=== PATIENT | male | born 1975 | race Two or more races ===

== ENCOUNTER 2021-09-30 14:02 | Emergency (ER) | payer MEDICAID ==
[2021-09-30 15:18] LABS: ANION GAP 14.9 mmol/L (5-15); CHLORIDE,CL 98 mmol/L (98-107); SODIUM,NA 136 mmol/L (136-145)
[2021-09-30 15:20] LABS: BARBITURATE SCREEN,URINE NEGATIVE (NEGATIVE); BENZODIAZEPINES SCREEN,URINE NEGATIVE (NEGATIVE); BUPRENORPHINE SCREEN,URINE NEGATIVE (NEGATIVE); METHAMPHETAMINE SCREEN, URINE NEGATIVE (NEGATIVE); THC SCREEN,URINE 50 NG/ML NEGATIVE (NEGATIVE)
== END 2021-09-30 15:35 | disposition home or self-care (01) ==
LOC: VM.ED 14:02
DX: R00.2 Palpitations (principal)
CPT/HCPCS: 36415; 80053; 80305-QW; 81003; 84443; 84484; 85025; 93005; 93010; 99284; 99285-25

== ENCOUNTER 2021-10-26 08:38 | Inpatient (IN) | payer MEDICAID ==
[2021-10-26] MEDS ORDERED: Sodium Chloride 0.9% 10 ML Syringe FLUSH PRN (08:50)
[2021-10-26] MEDS ORDERED: Ondansetron 4 MG/2 ML SDV IVPUSH ONE (08:51)
[2021-10-26] MEDS ORDERED: Sodium Chloride 0.9% 1,000 ML IV SCH (09:00)
[2021-10-26 09:50] LABS: CORONAVIRUS COVID-19 NAA NEGATIVE (NEGATIVE)
[2021-10-26 09:51] LABS: RESPIRATORY SYNCYTIAL VIR NAA NEGATIVE (NEGATIVE)
[2021-10-26 09:59] LABS: CHLORIDE,CL 91 mmol/L (98-107); SODIUM,NA 130 mmol/L (136-145)
[2021-10-26 10:29] LABS: PTT,PARTIAL THROMBOPLSTIN TIME 23.7 SEC (20.5-30.9)
[2021-10-26 11:24] LABS: BARBITURATE SCREEN,URINE NEGATIVE (NEGATIVE); BENZODIAZEPINES SCREEN,URINE NEGATIVE (NEGATIVE); METHAMPHETAMINE SCREEN, URINE NEGATIVE (NEGATIVE); THC SCREEN,URINE 50 NG/ML NEGATIVE (NEGATIVE)
[2021-10-26 11:25] LABS: BUPRENORPHINE SCREEN,URINE NEGATIVE (NEGATIVE)
[2021-10-26] MEDS ORDERED: LORazepam 2 MG/ML SDV IV PRN (11:46)
[2021-10-26] MEDS ORDERED: Haloperidol Lactate 5 MG/ML SDV IV PRN (11:46)
[2021-10-26] MEDS ORDERED: Acetaminophen 325 MG Tab PO PRN (11:51)
[2021-10-26] MEDS ORDERED: Thiamine 100 MG Tab PO SCH (12:00)
[2021-10-26] MEDS ORDERED: Magnesium Sulfate/Water 2 GM in Premix Bag 1 BAG IV ONE (12:33)
[2021-10-26] MEDS: Naltrexone 50 MG Tab PO SCH (13:50)
[2021-10-26] MEDS: cloNIDine 0.1 MG Tab PO SCH ×2 (13:50→19:51)
[2021-10-26] MEDS: Folic Acid 1 MG Tab PO SCH (13:50)
[2021-10-26] MEDS: Cholecalciferol (Vitamin D3) 5,000 UNIT Tab PO SCH (13:50)
[2021-10-26] MEDS: Lactulose Soln 10 GM/15 ML 15 ML UD Cup PO SCH ×2 (13:50→19:51)
[2021-10-26] MEDS: Multivitamins with Iron/Calcium/Folic Acid/Minerals Tab PO SCH (13:50)
[2021-10-26] MEDS: Sodium Chloride 0.9% 1,000 ML IV SCH (13:53)
[2021-10-26] MEDS: Nicotine 21 MG/24 Hr Patch TRDERM SCH (13:59)
[2021-10-26] MEDS: Pantoprazole 40 MG Vial IV SCH (14:01)
[2021-10-26] MEDS: Thiamine 500 MG in Sodium Chloride 0.9% 100 ML IV SCH ×2 (14:08→21:25)
[2021-10-26] MEDS: Potassium Chloride Riders 20 MEQ in Premix Bag 1 BAG IV SCH ×2 (15:00→16:07)
[2021-10-26] MEDS ORDERED: diphenhydrAMINE 50 MG/ML SDV IVPUSH STA (23:30)
[2021-10-27] MEDS: Ondansetron 4 MG/2 ML SDV IVPUSH PRN ×2 (00:47→05:33)
[2021-10-27] MEDS: LORazepam 2 MG/ML SDV IV PRN ×4 (00:47→09:44)
[2021-10-27] MEDS: Sodium Chloride 0.9% 1,000 ML IV SCH (00:49)
[2021-10-27] MEDS ORDERED: Haloperidol Lactate 5 MG/ML SDV IV PRN (07:33)
[2021-10-27 07:51] LABS: CHLORIDE,CL 102 mmol/L (98-107); SODIUM,NA 136 mmol/L (136-145)
[2021-10-27] MEDS ORDERED: OLANZapine 10 MG Vial IM ONE (07:54)
[2021-10-27 07:58] LABS: ANION GAP 11.9 mmol/L (5-15)
[2021-10-27] MEDS: Multivitamins with Iron/Calcium/Folic Acid/Minerals Tab PO SCH (08:02)
[2021-10-27] MEDS: Pantoprazole 40 MG Vial IV SCH (08:02)
[2021-10-27] MEDS: Nicotine 21 MG/24 Hr Patch TRDERM SCH (08:03)
[2021-10-27] MEDS: Naltrexone 50 MG Tab PO SCH (08:03)
[2021-10-27] MEDS: Folic Acid 1 MG Tab PO SCH (08:03)
[2021-10-27] MEDS: Cholecalciferol (Vitamin D3) 5,000 UNIT Tab PO SCH (08:03)
[2021-10-27] MEDS: Thiamine 500 MG in Sodium Chloride 0.9% 100 ML IV SCH ×2 (08:04→13:59)
[2021-10-27] MEDS: cloNIDine 0.1 MG Tab PO SCH ×2 (09:13→13:58)
[2021-10-27] MEDS ORDERED: Magnesium Chloride 64 MG Tab.ER PO SCH (12:00)
[2021-10-27] MEDS ORDERED: Potassium Bicarbonate 25 MEQ Tab.EFF PO SCH (12:00)
[2021-10-27] MEDS ORDERED: PHENobarbitaL sodium 260 MG in Sodium Chloride 0.9% 100 ML IV ONE (12:00)
== END 2021-10-27 14:34 | disposition short-term general hospital (02) | DRG 897 ==
LOC: VM.ED 08:38 → VM.MS 11:20
PROVIDERS: ADMIT Nurse Practitioner Family; ATTEND Nurse Practitioner Family
DX: F10.231 Alcohol dependence with withdrawal delirium (principal); E72.20 Disorder of urea cycle metabolism, unspecified; R56.9 Unspecified convulsions; E86.0 Dehydration; E78.5 Hyperlipidemia, unspecified; Z20.822 Contact with and (suspected) exposure to COVID-19; I15.2 Hypertension secondary to endocrine disorders; E11.9 Type 2 diabetes mellitus without complications; F17.200 Nicotine dependence, unspecified, uncomplicated; Y90.0 Blood alcohol level of less than 20 mg/100 ml; K29.20 Alcoholic gastritis without bleeding; Z79.899 Other long term (current) drug therapy
CPT/HCPCS: 0241U; 36415; 70450; 80053; 80305-QW; 80307; 81001; 82140; 82728; 82977; 83540; 83550; 83615; 83735; 84100; 84443; 84484; 85025; 85610; 85730; 86592; 87389; 96374; 99284; 99285-25; A9270-GY; C9113; J1200; J1630; J2060; J2405; J2560; J3411; J3475; J3480; J3490; J7030

== ENCOUNTER 2022-03-29 21:01 | Inpatient (IN) | payer MEDICAID ==
[2022-03-29] MEDS ORDERED: Sodium Chloride 0.9% 1,000 ML IV ONE (21:38)
[2022-03-29] MEDS ORDERED: Sodium Chloride 0.9% 10 ML Syringe FLUSH PRN (21:38)
[2022-03-29] MEDS ORDERED: chlordiazePOXIDE 25 MG Cap PO ONE (21:39)
[2022-03-29] MEDS ORDERED: Metoclopramide 10 MG/2 ML SDV IVPUSH ONE (21:47)
[2022-03-29 22:26] LABS: ANION GAP 23.4 mmol/L (5-15)
[2022-03-29] MEDS ORDERED: Magnesium Hydroxide 400 MG/5 ML Susp 30 ML Cup PO PRN (22:39)
[2022-03-29] MEDS: Nicotine 7 MG/24 Hr Patch TRDERM SCH (23:18)
[2022-03-29] MEDS ORDERED: Ondansetron 4 MG/2 ML SDV IVPUSH PRN (23:26)
[2022-03-29] MEDS: Dextrose 5%-0.9% NaCl 1,000 ML IV SCH (23:37)
[2022-03-29] MEDS: chlordiazePOXIDE 25 MG Cap PO SCH (23:39)
[2022-03-29] MEDS: Thiamine 200 MG/2 ML MDV IV SCH (23:51)
[2022-03-30] MEDS ORDERED: LORazepam 2 MG/ML SDV IVPUSH ONE (00:48)
[2022-03-30] MEDS ORDERED: Flumazenil 0.1 MG/ML 5 ML MDV IVPUSH PRN ×2 (00:48→08:51)
[2022-03-30] MEDS ORDERED: Metoclopramide 10 MG/2 ML SDV IVPUSH ONE (00:49)
[2022-03-30 04:05] LABS: ANION GAP 18.2 mmol/L (5-15)
[2022-03-30] MEDS ORDERED: Promethazine 12.5 MG in Sodium Chloride 0.9% 100 ML IV ONE (04:35)
[2022-03-30] MEDS: chlordiazePOXIDE 25 MG Cap PO SCH ×2 (04:58→11:06)
[2022-03-30] MEDS: Dextrose 5%-0.9% NaCl 1,000 ML IV SCH (05:18)
[2022-03-30] MEDS ORDERED: Ondansetron 4 MG/2 ML SDV IVPUSH PRN (08:31)
[2022-03-30] MEDS ORDERED: LORazepam 0.5 MG Tab PO PRN (08:50)
[2022-03-30] MEDS ORDERED: LORazepam 2 MG/ML SDV IVPUSH PRN (08:51)
[2022-03-30] MEDS ORDERED: Gabapentin 400 MG Cap PO STA (08:58)
[2022-03-30] MEDS ORDERED: Gabapentin 300 MG Cap PO SCH ×2 (09:00→13:00)
[2022-03-30] MEDS ORDERED: Rosuvastatin 20 MG Tab PO SCH (09:00)
[2022-03-30] MEDS ORDERED: Haloperidol Lactate 5 MG/ML SDV IV ONE (09:15)
[2022-03-30] MEDS: Thiamine 200 MG/2 ML MDV IV SCH (09:19)
[2022-03-30] MEDS: Nicotine 7 MG/24 Hr Patch TRDERM SCH (09:25)
[2022-03-30] MEDS: Pantoprazole 40 MG Vial IVPUSH SCH ×2 (09:25→20:06)
[2022-03-30 10:14] LABS: ANION GAP 15.2 mmol/L (5-15)
[2022-03-30] MEDS: NS with KCl 40mEq 1,000 ML IV SCH ×2 (10:14→21:58)
[2022-03-30] MEDS ORDERED: Magnesium Sulfate/Water 2 GM in Premix Bag 1 BAG IV ONE (10:45)
[2022-03-30] MEDS ORDERED: Prochlorperazine 5 MG Tab PO PRN (12:41)
[2022-03-30] MEDS ORDERED: Sodium Chloride 0.9% 1,000 ML IV STA (12:55)
[2022-03-30 13:21] LABS: ANION GAP 17.4 mmol/L (5-15)
[2022-03-30] MEDS: Folic Acid 1 MG Tab PO SCH (13:47)
[2022-03-30] MEDS: Baclofen 10 MG Tab PO SCH ×2 (13:47→20:03)
[2022-03-30] MEDS: Multivitamins with Iron/Calcium/Folic Acid/Minerals Tab PO SCH (13:47)
[2022-03-30] MEDS: PHENobarbital 64.8 MG Tab PO SCH ×2 (13:47→20:03)
[2022-03-30] MEDS: Nicotine 21 MG/24 Hr Patch TRDERM SCH (13:51)
[2022-03-30] MEDS: cloNIDine 0.1 MG Tab PO SCH ×2 (13:52→20:03)
[2022-03-30] MEDS ORDERED: Iopamidol 612 MG/ML 100 ML Bottle IVPUSH ONE (13:56)
[2022-03-30 16:46] LABS: BUPRENORPHINE,URINE NEGATIVE (NEGATIVE); MARIJUANA,URINE POSITIVE (NEGATIVE); METHYLENEDIOXYMETHAMP,UR NEGATIVE (NEGATIVE); PHENCYCLIDINE,URINE NEGATIVE (NEGATIVE)
[2022-03-30] MEDS ORDERED: Sodium Chloride 0.9% 1,000 ML IV ONE (17:19)
[2022-03-30] MEDS: Naltrexone 50 MG Tab PO SCH (20:03)
[2022-03-31] MEDS: cloNIDine 0.1 MG Tab PO SCH ×3 (05:36→20:05)
[2022-03-31] MEDS: Acetaminophen 325 MG Tab PO PRN (05:39)
[2022-03-31] MEDS: NS with KCl 40mEq 1,000 ML IV SCH (05:43)
[2022-03-31 07:24] LABS: ANION GAP 13.3 mmol/L (5-15); CHLORIDE,CL 99 mmol/L (98-107); ESTIMATED GFR 121 mL/min (>=60); SODIUM,NA 132 mmol/L (136-145)
[2022-03-31] MEDS ORDERED: Sodium Chloride 0.9% 1,000 ML IV ONE (07:54)
[2022-03-31] MEDS: Pantoprazole 40 MG Vial IVPUSH SCH (08:51)
[2022-03-31] MEDS: Baclofen 10 MG Tab PO SCH ×3 (08:55→20:06)
[2022-03-31] MEDS: Multivitamins with Iron/Calcium/Folic Acid/Minerals Tab PO SCH (08:55)
[2022-03-31] MEDS: Folic Acid 1 MG Tab PO SCH (08:55)
[2022-03-31] MEDS: Thiamine 100 MG Tab PO SCH (08:55)
[2022-03-31] MEDS: PHENobarbital 64.8 MG Tab PO SCH ×3 (08:56→20:05)
[2022-03-31] MEDS: Dextrose 5%-0.45% NaCl 1,000 ML IV SCH ×2 (10:01→18:06)
[2022-03-31] MEDS: Nicotine 21 MG/24 Hr Patch TRDERM SCH (15:49)
[2022-03-31] MEDS: Naltrexone 50 MG Tab PO SCH (20:05)
[2022-03-31] MEDS: Pantoprazole 40 MG Tab.CR PO SCH (20:06)
[2022-04-01] MEDS: Acetaminophen 325 MG Tab PO PRN ×2 (00:05→20:17)
[2022-04-01] MEDS: Dextrose 5%-0.45% NaCl 1,000 ML IV SCH ×3 (01:33→20:04)
[2022-04-01] MEDS ORDERED: Ketorolac 30 MG/ML SDV IVPUSH ONE (03:30)
[2022-04-01] MEDS ORDERED: Sodium Chloride 0.9% 1,000 ML IV ONE (03:33)
[2022-04-01] MEDS: cloNIDine 0.1 MG Tab PO SCH ×3 (05:02→20:08)
[2022-04-01 07:36] LABS: ANION GAP 11.1 mmol/L (5-15)
[2022-04-01] MEDS ORDERED: Potassium Chloride 20 MEQ Tab.ER PO ONE (08:23)
[2022-04-01] MEDS: Multivitamins with Iron/Calcium/Folic Acid/Minerals Tab PO SCH (09:18)
[2022-04-01] MEDS: Pantoprazole 40 MG Tab.CR PO SCH ×2 (09:18→20:06)
[2022-04-01] MEDS: PHENobarbital 64.8 MG Tab PO SCH ×3 (09:18→20:06)
[2022-04-01] MEDS: Folic Acid 1 MG Tab PO SCH (09:19)
[2022-04-01] MEDS: Baclofen 10 MG Tab PO SCH ×3 (09:19→20:06)
[2022-04-01] MEDS: Thiamine 100 MG Tab PO SCH (09:19)
[2022-04-01] MEDS: Nicotine 21 MG/24 Hr Patch TRDERM SCH (13:03)
[2022-04-01] MEDS: Naltrexone 50 MG Tab PO SCH (20:06)
[2022-04-02] MEDS: cloNIDine 0.1 MG Tab PO SCH ×2 (04:50→12:29)
[2022-04-02] MEDS: Dextrose 5%-0.45% NaCl 1,000 ML IV SCH (04:51)
[2022-04-02 07:17] LABS: ANION GAP 12.5 mmol/L (5-15)
[2022-04-02] MEDS: Thiamine 100 MG Tab PO SCH (09:19)
[2022-04-02] MEDS: PHENobarbital 64.8 MG Tab PO SCH ×2 (09:19→12:29)
[2022-04-02] MEDS: Multivitamins with Iron/Calcium/Folic Acid/Minerals Tab PO SCH (09:19)
[2022-04-02] MEDS: Baclofen 10 MG Tab PO SCH ×2 (09:19→12:29)
[2022-04-02] MEDS: Pantoprazole 40 MG Tab.CR PO SCH (09:19)
[2022-04-02] MEDS: Folic Acid 1 MG Tab PO SCH (09:19)
[2022-04-02] MEDS: Acetaminophen 325 MG Tab PO PRN ×2 (09:20→14:19)
[2022-04-02 12:25] VITALS: BP 113/80; PULSE 77
[2022-04-02] MEDS: Nicotine 21 MG/24 Hr Patch TRDERM SCH (12:27)
== END 2022-04-02 14:55 | disposition home or self-care (01) | DRG 896 ==
LOC: VM.ED 21:01 → VM.MS 22:39
PROVIDERS: ADMIT Physician Assistant; ATTEND Nurse Practitioner Family
DX: F10.239 Alcohol dependence with withdrawal, unspecified (principal); K85.90 Acute pancreatitis without necrosis or infection, unspecified; M62.82 Rhabdomyolysis; F10.129 Alcohol abuse with intoxication, unspecified; E87.6 Hypokalemia; E83.42 Hypomagnesemia; F17.210 Nicotine dependence, cigarettes, uncomplicated; K70.10 Alcoholic hepatitis without ascites; E11.9 Type 2 diabetes mellitus without complications; I10 Essential (primary) hypertension; R06.6 Hiccough; F41.9 Anxiety disorder, unspecified; F32.A Depression, unspecified; E78.5 Hyperlipidemia, unspecified; E78.00 Pure hypercholesterolemia, unspecified; E55.9 Vitamin D deficiency, unspecified; Z79.899 Other long term (current) drug therapy; Z20.822 Contact with and (suspected) exposure to COVID-19
CPT/HCPCS: 36415; 71045; 74170; 80048; 80053; 80305-QW; 80307; 81003; 82140; 82550; 82728; 83605; 83690; 83735; 85025; 85610; 85730; 93005; 96361; 96374; 99285-25; A9270-GY; C9113; J1630; J1885; J2060; J2405; J2550; J2765; J3411; J3475; J3480; J3490; J7030; J7042; Q9967; U0002

== ENCOUNTER 2022-04-22 01:40 | Emergency (ER) | payer MEDICAID ==
[2022-05-14 15:30] LABS: ANION GAP 14.4 mmol/L (5-15); CHLORIDE,CL 103 mmol/L (98-107); ESTIMATED GFR 111 mL/min (>=60); SODIUM,NA 142 mmol/L (136-145)
== END 2022-04-22 03:10 ==
LOC: VM.ED 01:40
DX: Z02.89 Encounter for other administrative examinations (principal); F10.10 Alcohol abuse, uncomplicated
CPT/HCPCS: 36415; 80053; 80307; 85027; 99283

== ENCOUNTER 2022-06-20 11:12 | Inpatient (IN) | payer MEDICAID ==
[2022-06-20] MEDS ORDERED: Sodium Chloride 0.9% 10 ML Syringe FLUSH PRN (11:29)
[2022-06-20] MEDS ORDERED: Ondansetron 4 MG/2 ML SDV IVPUSH ONE (11:29)
[2022-06-20] MEDS ORDERED: Sodium Chloride 0.9% 1,000 ML IV SCH (11:30)
[2022-06-20 11:53] LABS: CHLORIDE,CL 103 mmol/L (98-107); SODIUM,NA 142 mmol/L (136-145)
[2022-06-20 11:54] LABS: ANION GAP 22.5 mmol/L (5-15); ESTIMATED GFR 76 mL/min (>=60)
[2022-06-20 11:56] LABS: PTT,PARTIAL THROMBOPLSTIN TIME 24.1 SEC (20.5-30.9)
[2022-06-20 12:18] LABS: CORONAVIRUS COVID-19 NAA NEGATIVE (NEGATIVE); RESPIRATORY SYNCYTIAL VIR NAA NEGATIVE (NEGATIVE)
[2022-06-20] MEDS ORDERED: Iopamidol 612 MG/ML 100 ML Bottle IVPUSH ONE (12:19)
[2022-06-20] MEDS ORDERED: Prochlorperazine 10 MG/2 ML SDV IV ONE (13:09)
[2022-06-20] MEDS ORDERED: diphenhydrAMINE 50 MG/ML SDV IVPUSH ONE (13:10)
[2022-06-20] MEDS ORDERED: Haloperidol Lactate 5 MG/ML SDV IV PRN (14:35)
[2022-06-20] MEDS ORDERED: Magnesium Sulfate/Water 2 GM in Premix Bag 1 BAG IV ONE (14:39)
[2022-06-20] MEDS ORDERED: PHENobarbitaL sodium 260 MG in Sodium Chloride 0.9% 100 ML IV ONE (14:39)
[2022-06-20] MEDS ORDERED: Ondansetron 4 MG/2 ML SDV IVPUSH PRN (14:40)
[2022-06-20] MEDS ORDERED: Sodium Chloride 0.9% 1,000 ML IV ONE (14:42)
[2022-06-20] MEDS: Pantoprazole 40 MG Vial IVPUSH SCH (15:20)
[2022-06-20] MEDS: Thiamine 200 MG/2 ML MDV IVPUSH SCH (15:34)
[2022-06-20] MEDS: Folic Acid 50 MG/10 ML Bulk Vial IV SCH (15:57)
[2022-06-20 16:09] LABS: BUPRENORPHINE,URINE NEGATIVE (NEGATIVE); MARIJUANA,URINE NEGATIVE (NEGATIVE); METHYLENEDIOXYMETHAMP,UR NEGATIVE (NEGATIVE); PHENCYCLIDINE,URINE NEGATIVE (NEGATIVE)
[2022-06-20] MEDS: Sodium Chloride 0.9% 1,000 ML IV SCH (17:11)
[2022-06-20] MEDS: Naltrexone 50 MG Tab PO SCH (20:00)
[2022-06-20] MEDS: cloNIDine 0.1 MG Tab PO SCH (20:00)
[2022-06-21] MEDS: Sodium Chloride 0.9% 1,000 ML IV SCH ×3 (01:16→22:32)
[2022-06-21] MEDS: Pantoprazole 40 MG Vial IVPUSH SCH ×3 (01:16→14:10)
[2022-06-21 08:07] LABS: ANION GAP 14.4 mmol/L (5-15)
[2022-06-21] MEDS: Citalopram 20 MG Tab PO SCH (09:02)
[2022-06-21] MEDS: Multivitamin Tab PO SCH (09:03)
[2022-06-21] MEDS: Thiamine 200 MG/2 ML MDV IVPUSH SCH (09:03)
[2022-06-21] MEDS: cloNIDine 0.1 MG Tab PO SCH ×3 (09:03→20:05)
[2022-06-21] MEDS: amLODIPine 5 MG Tab PO SCH (10:19)
[2022-06-21] MEDS: Folic Acid 50 MG/10 ML Bulk Vial IV SCH (10:20)
[2022-06-21] MEDS: PHENobarbital Sodium 65 MG/ML SDV IVPUSH SCH (10:22)
[2022-06-21] MEDS ORDERED: Acetaminophen 325 MG Tab PO PRN (14:21)
[2022-06-21] MEDS: Naltrexone 50 MG Tab PO SCH (20:05)
[2022-06-22] MEDS: Pantoprazole 40 MG Vial IVPUSH SCH (02:12)
[2022-06-22] MEDS: Sodium Chloride 0.9% 1,000 ML IV SCH (06:26)
[2022-06-22 07:06] LABS: ANION GAP 12.2 mmol/L (5-15)
[2022-06-22] MEDS ORDERED: Potassium Chloride 20 MEQ Tab.ER PO ONE (07:41)
[2022-06-22] MEDS: Citalopram 20 MG Tab PO SCH (08:40)
[2022-06-22] MEDS: amLODIPine 5 MG Tab PO SCH (08:40)
[2022-06-22] MEDS: cloNIDine 0.1 MG Tab PO SCH (08:40)
[2022-06-22] MEDS: Multivitamin Tab PO SCH (08:40)
[2022-06-22] MEDS: Folic Acid 50 MG/10 ML Bulk Vial IV SCH (08:41)
[2022-06-22] MEDS: Thiamine 200 MG/2 ML MDV IVPUSH SCH (08:43)
[2022-06-22] MEDS: PHENobarbital Sodium 65 MG/ML SDV IVPUSH SCH (08:45)
== END 2022-06-22 10:50 | disposition home or self-care (01) | DRG 897 ==
LOC: VM.ED 11:12 → VM.MS 13:43
PROVIDERS: ADMIT Nurse Practitioner Family; ATTEND Nurse Practitioner Family
DX: F10.229 Alcohol dependence with intoxication, unspecified (principal); E72.20 Disorder of urea cycle metabolism, unspecified; K29.20 Alcoholic gastritis without bleeding; I10 Essential (primary) hypertension; E78.2 Mixed hyperlipidemia; F32.4 Major depressive disorder, single episode, in partial remission; F41.1 Generalized anxiety disorder; E55.9 Vitamin D deficiency, unspecified; E53.8 Deficiency of other specified B group vitamins; E83.119 Hemochromatosis, unspecified; Z20.822 Contact with and (suspected) exposure to COVID-19
CPT/HCPCS: 0241U; 36415; 71046; 74177; 80053; 80305-QW; 80307; 81001; 82140; 82150; 82977; 83690; 83735; 84100; 85025; 85610; 85730; 86140; 94760; 96361; 96374; 96375; 99284; 99285-25; A9270-GY; C9113; J0780; J1200; J1630; J2405; J2560; J3360; J3411; J3475; J7030; Q9967

== ENCOUNTER 2022-09-07 14:26 | Emergency (ER) | payer MEDICAID ==
[2022-09-07] MEDS ORDERED: LORazepam 2 MG/ML SDV IVPUSH PRN ×2 (15:04→16:32)
[2022-09-07 15:17] LABS: ANION GAP 18.7 mmol/L (5-15); CHLORIDE,CL 100 mmol/L (98-107); ESTIMATED GFR 76 mL/min (>=60); SODIUM,NA 139 mmol/L (136-145)
[2022-09-07 15:36] LABS: BARBITURATE SCREEN,URINE NEGATIVE (NEGATIVE); BENZODIAZEPINES SCREEN,URINE POSITIVE (NEGATIVE); BUPRENORPHINE SCREEN,URINE NEGATIVE (NEGATIVE); METHAMPHETAMINE SCREEN, URINE NEGATIVE (NEGATIVE); THC SCREEN,URINE 50 NG/ML POSITIVE (NEGATIVE)
[2022-09-07] MEDS ORDERED: cloNIDine 0.1 MG Tab PO ONE (16:26)
[2022-09-07] MEDS ORDERED: Acetaminophen 325 MG Tab PO ONE (17:01)
[2022-09-07] MEDS ORDERED: DULoxetine 60 MG Cap PO ONE (17:44)
[2022-09-07] MEDS ORDERED: cloNIDine 0.1 MG Tab PO SCH (17:45)
[2022-09-07] MEDS ORDERED: Take Home: LORazepam 0.5 MG Tab, 2 Tab Pack PO ONE (17:48)
== END 2022-09-07 18:21 ==
LOC: SUPCPDRO 14:26 → VM.ED 14:26
DX: F13.230 Sedative, hypnotic or anxiolytic dependence with withdrawal, uncomplicated (principal); I10 Essential (primary) hypertension; E11.9 Type 2 diabetes mellitus without complications; Z79.899 Other long term (current) drug therapy
CPT/HCPCS: 36415; 70450; 80053; 80305-QW; 80307; 81001; 85025; 85610; 93005; 93010; 96374; 96376; 99284; 99284-25; A9270-GY; J2060

== ENCOUNTER 2022-09-27 12:38 | Emergency (ER) | payer MEDICAID ==
[2022-09-27 14:37] LABS: CORONAVIRUS COVID-19 NAA NEGATIVE (NEGATIVE)
[2022-09-27 14:38] LABS: RESPIRATORY SYNCYTIAL VIR NAA NEGATIVE (NEGATIVE)
== END 2022-09-27 14:25 | disposition left against medical advice (07) ==
LOC: VM.ED 12:38
DX: R11.2 Nausea with vomiting, unspecified (principal); I10 Essential (primary) hypertension; E11.9 Type 2 diabetes mellitus without complications; Z20.822 Contact with and (suspected) exposure to COVID-19
CPT/HCPCS: 0241U; 99283

== ENCOUNTER 2023-02-27 10:25 | Emergency (ER) | payer SELFPAY ==
[2023-02-27 10:52] LABS: BASOPHILS PERCENT AUTO 0.3 % (0.2-1.2); EOSINOPHILS ABSOLUTE AUTO 0.5 x10^3/uL (0.0-0.5); EOSINOPHILS PERCENT AUTO 4.4 % (0.0-4.0); HEMATOCRIT 44.2 % (40.0-52.0); HEMOGLOBIN 15.6 g/dL (14.0-18.0); IMMATURE GRAN ABSOLUTE AUTO 0.03 x10^3/uL (0.00-0.07); LYMPHOCYTES ABSOLUTE AUTO 1.5 x10^3/uL (1.0-4.8); LYMPHOCYTES PERCENT AUTO 12.2 % (25.0-50.0); MEAN CORPUSCULAR HEMOGLOBIN 32.9 pg (26.0-32.0); MEAN CORPUSCULAR HGB CONC 35.3 g/dL (32.0-36.0); MEAN CORPUSCULAR VOLUME 93.2 fL (78.0-93.0); MONOCYTES ABSOLUTE AUTO 0.8 x10^3/uL (0.0-0.8); MONOCYTES PERCENT AUTO 6.7 % (2.0-11.0); NEUTROPHILS ABSOLUTE AUTO 9.3 x10^3/uL (1.8-7.7); NEUTROPHILS PERCENT AUTO 76.2 % (50.0-80.0); PLATELET COUNT,PLT 246 x10^3/uL (130-400); RED BLOOD CELL COUNT 4.74 x10^6/uL (4.5-6.0); WHITE BLOOD CELL COUNT,WBC 12.2 x10^3/uL (4.0-10.0)
[2023-02-27] MEDS: cloNIDine 0.1 MG Tab PO ONE (10:55)
[2023-02-27] MEDS: Labetalol 100 MG Tab PO ONE (11:03)
[2023-02-27 11:15] LABS: A/G RATIO 1.03; ALANINE AMINOTRANSFERASE,ALT 26 U/L (16-63); ALBUMIN 3.8 g/dL (3.4-5.0); ALKALINE PHOSPHATASE 147 U/L (46-116); ASPARTATE AMNIOTRANSFERASE,AST 24 U/L (15-37); BILIRUBIN TOTAL 0.6 mg/dL (0.2-1.0); BLOOD UREA NITROGEN,BUN 19 mg/dL (7-18); C-REACTIVE PROTEIN 0.32 mg/dL (<=0.30); CALCIUM 9.2 mg/dL (8.5-10.1); CARBON DIOXIDE,CO2 27 mmol/L (21-32); CHLORIDE,CL 102 mmol/L (98-107); CREATINE KINASE,CK 254 U/L (39-308); CREATININE 1.2 mg/dL (0.70-1.30); GLUCOSE RANDOM 99 mg/dL (70-99); LACTATE DEHYDROGENASE,LDH 180 U/L (85-227); POTASSIUM,K 4.5 mmol/L (3.5-5.1); PROTEIN TOTAL,TP 7.5 g/dL (6.4-8.2); SODIUM,NA 140 mmol/L (136-145)
[2023-02-27 11:16] LABS: ANION GAP 15.5 mmol/L (5-15); ESTIMATED GFR 76 mL/min (>=60)
[2023-02-27] MEDS: LORazepam 1 MG Tab PO ONE (11:27)
== END 2023-02-27 12:49 | disposition home or self-care (01) ==
LOC: VM.ED 10:25
DX: I16.0 Hypertensive urgency (principal); I10 Essential (primary) hypertension; E78.00 Pure hypercholesterolemia, unspecified; E11.9 Type 2 diabetes mellitus without complications; Z72.0 Tobacco use; Z79.899 Other long term (current) drug therapy
CPT/HCPCS: 71046; 80053; 82550; 83615; 84484; 85025; 86140; 93005; 93010; 99284; 99285; A9270-GY

== ENCOUNTER 2023-03-04 17:50 | Emergency (ER) | payer OTHER ==
[2023-03-04] MEDS ORDERED: Labetalol 100 MG Tab PO ONE (18:06)
[2023-03-04] MEDS ORDERED: Sodium Chloride 0.9% 10 ML Syringe FLUSH PRN (18:07)
[2023-03-04 18:14] LABS: BASOPHILS PERCENT AUTO 0.3 % (0.2-1.2); EOSINOPHILS ABSOLUTE AUTO 0.5 x10^3/uL (0.0-0.5); EOSINOPHILS PERCENT AUTO 5.2 % (0.0-4.0); HEMATOCRIT 37.7 % (40.0-52.0); HEMOGLOBIN 13.6 g/dL (14.0-18.0); IMMATURE GRAN ABSOLUTE AUTO 0.03 x10^3/uL (0.00-0.07); LYMPHOCYTES ABSOLUTE AUTO 1.7 x10^3/uL (1.0-4.8); LYMPHOCYTES PERCENT AUTO 17.4 % (25.0-50.0); MEAN CORPUSCULAR HEMOGLOBIN 33.2 pg (26.0-32.0); MEAN CORPUSCULAR HGB CONC 36.1 g/dL (32.0-36.0); MONOCYTES ABSOLUTE AUTO 0.8 x10^3/uL (0.0-0.8); MONOCYTES PERCENT AUTO 8.7 % (2.0-11.0); NEUTROPHILS ABSOLUTE AUTO 6.6 x10^3/uL (1.8-7.7); NEUTROPHILS PERCENT AUTO 68.1 % (50.0-80.0); PLATELET COUNT,PLT 258 x10^3/uL (130-400); WHITE BLOOD CELL COUNT,WBC 9.7 x10^3/uL (4.0-10.0)
[2023-03-04] MEDS: Aspirin 81 MG Tab.Chew PO ONE (18:17)
[2023-03-04] MEDS: cloNIDine 0.1 MG Tab PO ONE (18:17)
[2023-03-04 18:39] LABS: ALANINE AMINOTRANSFERASE,ALT 27 U/L (16-63); ALBUMIN 3.6 g/dL (3.4-5.0); ALKALINE PHOSPHATASE 138 U/L (46-116); ASPARTATE AMNIOTRANSFERASE,AST 27 U/L (15-37); BILIRUBIN TOTAL 0.4 mg/dL (0.2-1.0); BLOOD UREA NITROGEN,BUN 18 mg/dL (7-18); CALCIUM 8.5 mg/dL (8.5-10.1); CARBON DIOXIDE,CO2 24 mmol/L (21-32); CHLORIDE,CL 101 mmol/L (98-107); GLUCOSE RANDOM 104 mg/dL (70-99); MAGNESIUM 1.9 mg/dL (1.8-2.4); POTASSIUM,K 3.5 mmol/L (3.5-5.1); PROTEIN TOTAL,TP 7.2 g/dL (6.4-8.2); SODIUM,NA 138 mmol/L (136-145); TSH ULTRASENSITIVE 2.023 uIU/mL (0.358-3.74)
[2023-03-04 18:41] LABS: ANION GAP 16.5 mmol/L (5-15); ESTIMATED GFR 94 mL/min (>=60)
== END 2023-03-04 19:11 ==
LOC: VM.ED 17:50
DX: I10 Essential (primary) hypertension (principal); E78.00 Pure hypercholesterolemia, unspecified; Z79.899 Other long term (current) drug therapy
CPT/HCPCS: 80053; 83735; 84443; 84484; 85025; 93005; 93010; 99284; 99285; A9270

== ENCOUNTER 2023-03-16 21:21 | Emergency (ER) | payer OTHER ==
[2023-03-16] MEDS ORDERED: Propranolol 60 MG Cap.ER PO ONE (21:35)
[2023-03-16] MEDS ORDERED: cloNIDine 0.1 MG Tab PO ONE (21:35)
[2023-03-16] MEDS ORDERED: LORazepam 0.5 MG Tab PO ONE (21:36)
== END 2023-03-16 22:36 ==
LOC: VM.ED 21:21
DX: I10 Essential (primary) hypertension (principal); E78.00 Pure hypercholesterolemia, unspecified; Z79.899 Other long term (current) drug therapy
CPT/HCPCS: 99283; 99284; A9270-GY

== ENCOUNTER 2023-03-28 13:27 | Emergency (ER) | payer SELFPAY ==
[2023-03-28] MEDS: Propranolol 60 MG Cap.ER PO ONE (13:56)
[2023-03-28] MEDS: cloNIDine 0.1 MG Tab PO ONE ×2 (13:56→14:41)
[2023-03-28 14:02] LABS: BASOPHILS PERCENT AUTO 0.4 % (0.2-1.2); EOSINOPHILS ABSOLUTE AUTO 0.4 x10^3/uL (0.0-0.5); EOSINOPHILS PERCENT AUTO 3.9 % (0.0-4.0); HEMATOCRIT 43.2 % (40.0-52.0); HEMOGLOBIN 14.9 g/dL (14.0-18.0); IMMATURE GRAN ABSOLUTE AUTO 0.01 x10^3/uL (0.00-0.07); LYMPHOCYTES ABSOLUTE AUTO 1.8 x10^3/uL (1.0-4.8); LYMPHOCYTES PERCENT AUTO 17.5 % (25.0-50.0); MEAN CORPUSCULAR HEMOGLOBIN 31.9 pg (26.0-32.0); MEAN CORPUSCULAR HGB CONC 34.5 g/dL (32.0-36.0); MEAN CORPUSCULAR VOLUME 92.5 fL (78.0-93.0); MONOCYTES ABSOLUTE AUTO 0.7 x10^3/uL (0.0-0.8); MONOCYTES PERCENT AUTO 7.2 % (2.0-11.0); NEUTROPHILS ABSOLUTE AUTO 7.2 x10^3/uL (1.8-7.7); NEUTROPHILS PERCENT AUTO 70.9 % (50.0-80.0); PLATELET COUNT,PLT 271 x10^3/uL (130-400); RED BLOOD CELL COUNT 4.67 x10^6/uL (4.5-6.0); WHITE BLOOD CELL COUNT,WBC 10.1 x10^3/uL (4.0-10.0)
[2023-03-28] MEDS: Ibuprofen 200 MG Tab PO ONE (14:06)
[2023-03-28 14:18] LABS: A/G RATIO 0.84; ALANINE AMINOTRANSFERASE,ALT 23 U/L (16-63); ALBUMIN 3.6 g/dL (3.4-5.0); ALKALINE PHOSPHATASE 143 U/L (46-116); ASPARTATE AMNIOTRANSFERASE,AST 18 U/L (15-37); BILIRUBIN TOTAL 0.5 mg/dL (0.2-1.0); BLOOD UREA NITROGEN,BUN 18 mg/dL (7-18); CALCIUM 8.9 mg/dL (8.5-10.1); CARBON DIOXIDE,CO2 27 mmol/L (21-32); CHLORIDE,CL 100 mmol/L (98-107); CREATININE 1.1 mg/dL (0.70-1.30); GLUCOSE RANDOM 110 mg/dL (70-99); POTASSIUM,K 3.8 mmol/L (3.5-5.1); PROTEIN TOTAL,TP 7.9 g/dL (6.4-8.2); SODIUM,NA 138 mmol/L (136-145)
[2023-03-28 14:19] LABS: ANION GAP 14.8 mmol/L (5-15); ESTIMATED GFR 84 mL/min (>=60)
== END 2023-03-28 14:41 ==
LOC: VM.ED 13:27
DX: I10 Essential (primary) hypertension (principal); E78.00 Pure hypercholesterolemia, unspecified; Z79.899 Other long term (current) drug therapy
CPT/HCPCS: 36415; 71045; 80053; 84484; 85025; 93010; 99284; 99285; A9270-GY

== ENCOUNTER 2023-03-30 05:53 | Emergency (ER) | payer SELFPAY ==
[2023-03-30] MEDS ORDERED: Prochlorperazine 10 MG/2 ML SDV IM ONE (06:09)
[2023-03-30] MEDS ORDERED: Propranolol 20 MG Tab PO ONE (06:09)
[2023-03-30] MEDS ORDERED: diphenhydrAMINE 50 MG/ML SDV IM ONE (06:09)
[2023-03-30] MEDS: Ketorolac 30 MG/ML SDV IVPUSH ONE ×2 (06:27→22:09)
[2023-03-30] MEDS ORDERED: Ketorolac 30 MG/ML SDV IM ONE (06:42)
== END 2023-03-30 06:56 | disposition home or self-care (01) ==
LOC: VM.ED 05:53
DX: G43.009 Migraine without aura, not intractable, without status migrainosus (principal); E78.00 Pure hypercholesterolemia, unspecified; I10 Essential (primary) hypertension; Z79.899 Other long term (current) drug therapy
CPT/HCPCS: 93005; 93010; 96372; 99283; 99284; A9270-GY; J0780; J1200; J1885

== ENCOUNTER 2023-04-05 16:26 | Emergency (ER) | payer OTHER ==
[2023-04-05] MEDS ORDERED: cloNIDine 0.1 MG Tab PO ONE (16:46)
[2023-04-05 17:04] LABS: BASOPHILS PERCENT AUTO 0.4 % (0.2-1.2); EOSINOPHILS ABSOLUTE AUTO 0.5 x10^3/uL (0.0-0.5); EOSINOPHILS PERCENT AUTO 4.4 % (0.0-4.0); HEMATOCRIT 43.3 % (40.0-52.0); HEMOGLOBIN 14.9 g/dL (14.0-18.0); IMMATURE GRAN ABSOLUTE AUTO 0.02 x10^3/uL (0.00-0.07); LYMPHOCYTES ABSOLUTE AUTO 1.8 x10^3/uL (1.0-4.8); LYMPHOCYTES PERCENT AUTO 16.4 % (25.0-50.0); MEAN CORPUSCULAR HEMOGLOBIN 32.3 pg (26.0-32.0); MEAN CORPUSCULAR HGB CONC 34.4 g/dL (32.0-36.0); MEAN CORPUSCULAR VOLUME 93.7 fL (78.0-93.0); MONOCYTES ABSOLUTE AUTO 0.8 x10^3/uL (0.0-0.8); MONOCYTES PERCENT AUTO 7.8 % (2.0-11.0); NEUTROPHILS ABSOLUTE AUTO 7.6 x10^3/uL (1.8-7.7); NEUTROPHILS PERCENT AUTO 70.8 % (50.0-80.0); PLATELET COUNT,PLT 249 x10^3/uL (130-400); RED BLOOD CELL COUNT 4.62 x10^6/uL (4.5-6.0); WHITE BLOOD CELL COUNT,WBC 10.8 x10^3/uL (4.0-10.0)
[2023-04-05 17:29] LABS: A/G RATIO 1.06; ALANINE AMINOTRANSFERASE,ALT 22 U/L (16-63); ALBUMIN 3.7 g/dL (3.4-5.0); ALKALINE PHOSPHATASE 124 U/L (46-116); ANION GAP 14.2 mmol/L (5-15); ASPARTATE AMNIOTRANSFERASE,AST 17 U/L (15-37); BILIRUBIN TOTAL 0.6 mg/dL (0.2-1.0); BLOOD UREA NITROGEN,BUN 18 mg/dL (7-18); C-REACTIVE PROTEIN 0.17 mg/dL (<=0.30); CALCIUM 8.7 mg/dL (8.5-10.1); CARBON DIOXIDE,CO2 27 mmol/L (21-32); CHLORIDE,CL 101 mmol/L (98-107); CREATININE 1.3 mg/dL (0.70-1.30); ESTIMATED GFR 69 mL/min (>=60); GLUCOSE RANDOM 102 mg/dL (70-99); POTASSIUM,K 4.2 mmol/L (3.5-5.1); PROTEIN TOTAL,TP 7.2 g/dL (6.4-8.2); SODIUM,NA 138 mmol/L (136-145)
[2023-04-05] MEDS ORDERED: predniSONE 20 MG Tab PO ONE (18:05)
[2023-04-05] MEDS ORDERED: Naproxen 500 MG Tab PO ONE (18:06)
== END 2023-04-05 18:17 ==
LOC: VM.ED 16:26
DX: R07.89 Other chest pain (principal); I10 Essential (primary) hypertension; Z79.899 Other long term (current) drug therapy
CPT/HCPCS: 36415; 71045; 80053; 84484; 85025; 86140; 93005; 99285; A9270; J7512

== ENCOUNTER 2024-03-15 20:30 | Emergency (ER) | payer SELFPAY ==
[2024-03-15] MEDS: Ondansetron 4 MG/2 ML SDV IVPUSH ONE (21:34)
[2024-03-15 21:35] LABS: BASOPHILS PERCENT AUTO 0.3 % (0.2-1.2); EOSINOPHILS ABSOLUTE AUTO 0.3 x10^3/uL (0.0-0.5); EOSINOPHILS PERCENT AUTO 2.5 % (0.0-4.0); HEMATOCRIT 41.1 % (40.0-52.0); HEMOGLOBIN 14.5 g/dL (14.0-18.0); IMMATURE GRAN ABSOLUTE AUTO 0.02 x10^3/uL (0.00-0.07); LYMPHOCYTES ABSOLUTE AUTO 2.2 x10^3/uL (1.0-4.8); LYMPHOCYTES PERCENT AUTO 16.5 % (25.0-50.0); MEAN CORPUSCULAR HEMOGLOBIN 31.3 pg (26.0-32.0); MEAN CORPUSCULAR HGB CONC 35.3 g/dL (32.0-36.0); MEAN CORPUSCULAR VOLUME 88.6 fL (78.0-93.0); MONOCYTES ABSOLUTE AUTO 0.8 x10^3/uL (0.0-0.8); MONOCYTES PERCENT AUTO 6.1 % (2.0-11.0); NEUTROPHILS ABSOLUTE AUTO 9.7 x10^3/uL (1.8-7.7); NEUTROPHILS PERCENT AUTO 74.4 % (50.0-80.0); PLATELET COUNT,PLT 248 x10^3/uL (130-400); RED BLOOD CELL COUNT 4.64 x10^6/uL (4.5-6.0)
[2024-03-15] MEDS: Sodium Chloride 0.9% 1,000 ML IV ONE (21:50)
[2024-03-15 21:52] LABS: A/G RATIO 1.21; ALANINE AMINOTRANSFERASE,ALT 26 U/L (16-63); ALKALINE PHOSPHATASE 146 U/L (46-116); ASPARTATE AMNIOTRANSFERASE,AST 21 U/L (15-37); BILIRUBIN TOTAL 0.4 mg/dL (0.2-1.0); BLOOD UREA NITROGEN,BUN 21 mg/dL (7-18); CALCIUM 8.7 mg/dL (8.5-10.1); CARBON DIOXIDE,CO2 25 mmol/L (21-32); CHLORIDE,CL 106 mmol/L (98-107); CREATININE 1.2 mg/dL (0.70-1.30); GLUCOSE RANDOM 124 mg/dL (70-99); POTASSIUM,K 3.5 mmol/L (3.5-5.1); PROTEIN TOTAL,TP 7.3 g/dL (6.4-8.2); SODIUM,NA 144 mmol/L (136-145)
[2024-03-15] MEDS: Meclizine 25 MG Tab PO ONE ×2 (21:52→22:37)
[2024-03-15 21:53] LABS: ANION GAP 16.5 mmol/L (5-15); ESTIMATED GFR 75 mL/min (>=60)
[2024-03-15] MEDS: methylPREDNISolone Sodium Succinate 125 MG/2 ML SDV IVPUSH ONE (21:58)
== END 2024-03-15 22:59 | disposition home or self-care (01) ==
LOC: VM.ED 20:30
DX: R42 Dizziness and giddiness (principal); I10 Essential (primary) hypertension; Z79.899 Other long term (current) drug therapy
CPT/HCPCS: 70450; 80053; 84484; 85025; 93010; 96361; 96374; 96375; 99284; 99284-25; A9270-GY; J2405; J2919; J7030

== ENCOUNTER 2024-08-01 19:10 | Emergency (ER) | payer BC ==
[2024-08-01] MEDS: Acetaminophen 325 MG Tab PO ONE (19:42)
[2024-08-01] MEDS: Take Home: Oseltamivir 75 MG Cap, 2 Cap Pack PO ONE (20:28)
== END 2024-08-01 20:35 | disposition home or self-care (01) ==
LOC: VM.ED 19:10
DX: J10.1 Influenza due to other identified influenza virus with other respiratory manifestations (principal); I10 Essential (primary) hypertension; E78.00 Pure hypercholesterolemia, unspecified; Z79.899 Other long term (current) drug therapy
CPT/HCPCS: 87428-QW; 99283; A9270-GY

== ENCOUNTER 2024-10-20 01:20 | Emergency (ER) | payer SELFPAY ==
[2024-10-20] MEDS: Lactated Ringers 1,000 ML IV SCH (02:08)
[2024-10-20] MEDS: Ondansetron 4 MG/2 ML SDV IVPUSH ONE (02:08)
[2024-10-20 02:21] LABS: BASOPHILS PERCENT AUTO 0.3 % (0.2-1.2); EOSINOPHILS ABSOLUTE AUTO 0.1 x10^3/uL (0.0-0.5); EOSINOPHILS PERCENT AUTO 0.8 % (0.0-4.0); HEMATOCRIT 50.3 % (40.0-52.0); HEMOGLOBIN 18.4 g/dL (14.0-18.0); IMMATURE GRAN ABSOLUTE AUTO 0.03 x10^3/uL (0.00-0.07); LYMPHOCYTES ABSOLUTE AUTO 2.4 x10^3/uL (1.0-4.8); LYMPHOCYTES PERCENT AUTO 17.5 % (25.0-50.0); MEAN CORPUSCULAR HEMOGLOBIN 32.1 pg (26.0-32.0); MEAN CORPUSCULAR HGB CONC 36.6 g/dL (32.0-36.0); MEAN CORPUSCULAR VOLUME 87.6 fL (78.0-93.0); MONOCYTES ABSOLUTE AUTO 0.9 x10^3/uL (0.0-0.8); MONOCYTES PERCENT AUTO 6.7 % (2.0-11.0); NEUTROPHILS PERCENT AUTO 74.5 % (50.0-80.0); PLATELET COUNT,PLT 319 x10^3/uL (130-400); RED BLOOD CELL COUNT 5.74 x10^6/uL (4.5-6.0); WHITE BLOOD CELL COUNT,WBC 13.4 x10^3/uL (4.0-10.0)
[2024-10-20 02:23] LABS: INR 0.9 (0.9-1.1)
[2024-10-20 02:38] LABS: A/G RATIO 0.91; ANION GAP 25.7 mmol/L (5-15); BILIRUBIN TOTAL 1.4 mg/dL (0.2-1.0); CALCIUM 8.7 mg/dL (8.5-10.1); CREATININE 1.3 mg/dL (0.70-1.30); EST CRCL DRUG DOSING (CG) 77.1 mL/min; MAGNESIUM 1.6 mg/dL (1.8-2.4); PROTEIN TOTAL,TP 8.4 g/dL (6.4-8.2)
[2024-10-20 02:39] LABS: POTASSIUM,K 2.7 mmol/L (3.5-5.1)
[2024-10-20] MEDS: Potassium Chloride 20 MEQ Tab.ER PO ONE (02:45)
[2024-10-20] MEDS: LORazepam 2 MG/ML SDV IVPUSH ONE (02:52)
[2024-10-20] MEDS: Take Home: Ondansetron 4 MG Tab.DIS, 5 Tab Pack PO ONE (03:41)
== END 2024-10-20 04:05 | disposition home or self-care (01) ==
LOC: VM.ED 01:20
DX: R11.2 Nausea with vomiting, unspecified (principal); E87.6 Hypokalemia; F10.10 Alcohol abuse, uncomplicated; I10 Essential (primary) hypertension; E78.00 Pure hypercholesterolemia, unspecified; Z79.899 Other long term (current) drug therapy
CPT/HCPCS: 80053; 83735; 85025; 85610; 96361; 96374; 96375; 99284; 99284-25; A9270-GY; J2060; J2405; J7120; Q0162